=== PATIENT | male | born 1990 | race American Indian/Alaskan Native ===

== ENCOUNTER 2017-08-20 23:09 | Emergency (ER) | payer OTHER ==
[2017-08-21 00:24] VITALS: BP 139/83
[2017-08-21] MEDS ORDERED: BSS OU ONE (01:13)
[2017-08-21] MEDS ORDERED: FUL-GLO OP ONE (01:13)
[2017-08-21] MEDS ORDERED: TETRACAINE 0.5% OU ONE (01:13)
--- NOTE | 2017-08-21 03:17 | Emergency Department Report ---
ED Eye Problem HPI - General Chief complaint: Eye Problems Stated complaint: RED EYES Time Seen by Provider: 08/21/17 03:00 Source: patient Mode of arrival: Ambulatory Limitations: No Limitations - Related Data Previous Rx's Medication Instructions Recorded Last Taken Type ALBUTEROL Inhaler [ProAir HFA 2 puff IH QID PRN #1 inhalation 08/09/14 Unknown Rx Inhaler] Azithromycin [Zithromax TAB] 250 mg PO QDAY #3 tablet 08/09/14 Unknown Rx Benzonatate [Tessalon Perles] 100 mg PO Q8HR #20 capsule 08/09/14 Unknown Rx Erythromycin [Erythromycin Ophth 1 applic OS QID #1 tube 08/21/17 Unknown Rx Oint] Fexofenadine HCl [Kimmie Allergy] 60 mg PO BID #60 tablet 08/21/17 Unknown Rx Fluticasone [Flonase] 1 spray NS QDAY #1 bottle 08/21/17 Unknown Rx Ibuprofen [Motrin 800 MG tab] 800 mg PO Q8HR PRN #30 tablet 08/21/17 Unknown Rx Olopatadine HCl [Pataday] 2.5 ml OP QDAY #1 drops 08/21/17 Unknown Rx Allergies Allergy/AdvReac Type Severity Reaction Status Date / Time No Known Allergies Allergy Verified 08/21/17 00:24 ED Review of Systems ROS: Stated complaint: RED EYES Other details as noted in HPI ED Past Medical Hx - Past Medical History Previous Medical History?: No - Surgical History Past Surgical History?: No - Social History Smoking Status: Never Smoker Substance Use Type: None - Medications Home Medications: Home Medications Medication Instructions Recorded Confirmed Last Taken Type ALBUTEROL Inhaler [ProAir HFA 2 puff IH QID PRN #1 inhalation 08/09/14 Unknown Rx Inhaler] Azithromycin [Zithromax TAB] 250 mg PO QDAY #3 tablet 08/09/14 Unknown Rx Benzonatate [Tessalon Perles] 100 mg PO Q8HR #20 capsule 08/09/14 Unknown Rx Erythromycin [Erythromycin Ophth 1 applic OS QID #1 tube 08/21/17 Unknown Rx Oint] Fexofenadine HCl [Kimmie Allergy] 60 mg PO BID #60 tablet 08/21/17 Unknown Rx Fluticasone [Flonase] 1 spray NS QDAY #1 bottle 08/21/17 Unknown Rx Ibuprofen [Motrin 800 MG tab] 800 mg PO Q8HR PRN #30 tablet 08/21/17 Unknown Rx Olopatadine HCl [Pataday] 2.5 ml OP QDAY #1 drops 08/21/17 Unknown Rx ED Physical Exam - General Limitations: No Limitations ED Course Vital Signs 08/21/17 00:20 Temperature 98.1 F Pulse Rate 79 Blood Pressure 139/83 O2 Sat by Pulse 96 Oximetry Critical care attestation.: If time is entered above; I have spent that time in minutes in the direct care of this critically ill patient, excluding procedure time. ED Disposition Clinical Impression: Allergic conjunctivitis and rhinitis Qualifiers: Laterality: bilateral Qualified Code(s): H10.13 - Acute atopic conjunctivitis, bilateral; J30.9 - Allergic rhinitis, unspecified Corneal abrasion, left Qualifiers: Encounter type: initial encounter Qualified Code(s): S05.02XA - Injury of conjunctiva and corneal abrasion without foreign body, left eye, initial encounter Disposition: TO HOME OR SELFCARE Is pt being admited?: No Does the pt Need Aspirin: No Condition: Stable Instructions: Corneal Abrasion (ED), Conjunctivitis (ED) Additional Instructions: Take prescriptions as prescribed. It is very important for you to follow up with automotive production worker in the next 24-48 hours. Also I recommend following up with an clinical nutritionist. I have listed several referrals below. Prescriptions: Erythromycin [Erythromycin Ophth Oint] 1 applic OS QID #1 tube Fexofenadine HCl [Kimmie Allergy] 60 mg PO BID #60 tablet Fluticasone [Flonase] 1 spray NS QDAY #1 bottle Ibuprofen [Motrin 800 MG tab] 800 mg PO Q8HR PRN #30 tablet PRN Reason: Pain Olopatadine HCl [Pataday] 2.5 ml OP QDAY #1 drops Referrals: PRIMARY CARE, [Primary Care Provider] - 3-5 Days [facility], [facility] [Provider Group] - 3-5 Days [facility] [Provider Group] - 3-5 Days [facility] [Provider Group] - 3-5 Days [facility] [Provider Group] - 3-5 Days [facility] [place] [Provider Group] - 3-5 Days JERICOH CALDERON MD [Staff Physician] - 3-5 Days Forms: Work/School Release Form(ED), Accompanied Note
== END 2017-08-21 04:13 | disposition home or self-care (01) ==
LOC: ED 23:09
DX: S05.02XA Injury of conjunctiva and corneal abrasion without foreign body, left eye, initial encounter (principal); H10.13 Acute atopic conjunctivitis, bilateral; J30.9 Allergic rhinitis, unspecified; X58.XXXA Exposure to other specified factors, initial encounter; Y93.89 Activity, other specified; Y92.89 Other specified places as the place of occurrence of the external cause; Y99.8 Other external cause status
CPT/HCPCS: 99282

== ENCOUNTER 2020-07-08 19:06 | Emergency (ER) | payer OTHER ==
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
== END 2020-07-08 21:28 | disposition home or self-care (01) ==
LOC: ED 19:06
CPT/HCPCS: 99282